=== PATIENT | female | born 1940 | race Caucasian/White ===

== ENCOUNTER 2023-11-10 08:47 | Emergency (ER) | payer MEDICAID, SELFPAY ==
[~2023-11-10] VITALS: Ht 142.2 cm; Wt 59.0 kg
[2023-11-10 08:58] VITALS: O2SAT 99
[2023-11-10 09:23] LABS: HEMATOCRIT. 33.8 % (36.0-48.0); HEMOGLOBIN. 11.4 g/dL (12.0-16.0); MEAN CORPUSCULAR HEMOGLOBIN 33.2 pg (28.0-32.0); MEAN CORPUSCULAR HGB CONC 33.8 g/dL (31.0-37.0); MEAN CORPUSCULAR VOLUME 98.2 fL (81.0-99.0); MEAN PLATELET VOLUME 7.2 fl (7.4-10.4); PLATELET 133 x1000/uL (130-400); RED BLOOD CELL COUNT 3.44 mill/uL (4.2-5.4); RED CELL DISTRIBUTION WIDTH 13.6 % (11.6-14.6); WHITE BLOOD COUNT 3.1 x1000/uL (4.5-11.0)
[2023-11-10 09:27] LABS: DIFFERENTIAL COMMENT 1
[2023-11-10 09:31] LABS: INR 1.1; PROTHROMBIN TIME 12.6 sec (9.6-11.0)
[2023-11-10 09:38] LABS: ALANINE AMINOTRANSFERASE 15 IU/L (10-49); ALBUMIN 2.9 g/dL (3.2-4.8); ASPARTATE AMINOTRANSFERASE 39 IU/L (<34); CALCIUM 8.4 mg/dL (8.7-10.4); CARBON DIOXIDE 29 mEq/L (21-32); CHLORIDE 103 mEq/L (98-107); CREATININE 1.1 mg/dL (0.6-1.0); GLUCOSE 114 mg/dL (70-105); PROTEIN TOTAL 8.8 g/dL (6.0-8.3); SODIUM 135 mEq/L (136-145); UREA NITROGEN BLOOD 18 mg/dL (9-23)
[2023-11-10 10:19] LABS: PLATELET ESTIMATE NORMAL
[2023-11-10] MEDS: LIDOCAINE HCL 1% 10 MG/ML 10ML VIAL ONE (11:10)
[2023-11-10] MEDS: SODIUM BICARBONATE 4% (2.4MEQ) 5ML VIAL IV ONE (11:10)
[2023-11-10 13:39] VITALS: BP 110/64; PULSE 74; RESP 16; TEMP 98
== END 2023-11-10 13:40 | disposition home or self-care (01) ==
LOC: ER 08:47
DX: R18.8 Other ascites (principal); K74.60 Unspecified cirrhosis of liver; E11.9 Type 2 diabetes mellitus without complications; I11.0 Hypertensive heart disease with heart failure; I50.9 Heart failure, unspecified; Z88.0 Allergy status to penicillin; Z98.890 Other specified postprocedural states
CPT/HCPCS: 80053; 83880; 83690; 85025; 85610; 36415; 49083; 99285; J3490 ×2; Z7610 ×6